=== PATIENT | female | born 1945 | race Two or more races ===

== ENCOUNTER 2019-09-03 10:58 | Inpatient (IN) | payer OTHER ==
[~2019-09-03] VITALS: Ht 167.6 cm; Wt 73.5 kg
[~2019-09-03 10:58] MED LIST: CANDESARTAN CILE8 MG PO; ELIQUIS5 MG PO; LEVOTHYROXINE25 MCG PO; REGLAN5 MG/5 ML PO; ZOFRAN8 MG PO
[2019-10-02] MEDS ORDERED: ATORVASTATIN CA40 MG PO (13:24)
[2019-10-06] MEDS ORDERED: HYOSCYAMINE0.125 M1 SL (12:51)
[2019-10-06] MEDS ORDERED: OXYC1TAB9 PO (12:52)
[2019-10-06] MEDS ORDERED: INTESTINEX680 M1 PO (12:52)
== END 2019-10-06 13:59 | disposition home or self-care (01) | DRG 330 ==
LOC: RECOVERY 09-04 10:28 → O/R 10-02 10:22 → SURH 10-02 10:22 → SURG 10-02 10:22 → RECOVERY 10-02 19:00 → SURG 10-02 19:59 → SURH 10-04 13:27
PROVIDERS: ADMIT Obstetrics & Gynecology Gynecologic Oncology; ATTEND Surgery
PROC: 0UBG8ZZ Excision of Vagina, Via Natural or Artificial Opening Endoscopic (ICD-10-PCS; 2019-10-02)
PROC: 07BB4ZX Excision of Mesenteric Lymphatic, Percutaneous Endoscopic Approach, Diagnostic (ICD-10-PCS; 2019-10-02)
PROC: 0D1N4Z4 Bypass Sigmoid Colon to Cutaneous, Percutaneous Endoscopic Approach (ICD-10-PCS; principal; 2019-10-02 19:00)
PROC: 0DBP4ZZ Excision of Rectum, Percutaneous Endoscopic Approach (ICD-10-PCS; 2019-10-02 19:00)
DX: C18.1 Malignant neoplasm of appendix (principal); C78.5 Secondary malignant neoplasm of large intestine and rectum; C79.82 Secondary malignant neoplasm of genital organs; R59.0 Localized enlarged lymph nodes; R14.0 Abdominal distension (gaseous); E03.8 Other specified hypothyroidism; D64.9 Anemia, unspecified; I11.9 Hypertensive heart disease without heart failure; Z03.818 Encounter for observation for suspected exposure to other biological agents ruled out

== ENCOUNTER 2021-03-15 05:40 | Day surgery (SDC) | payer OTHER ==
[~2021-03-15 05:40] MED LIST changes: +ATORVASTATIN CA40 MG PO; +HYOSCYAMINE0.125 M1 SL; +INTESTINEX680 M1 PO; +OXYC1TAB9 PO
== END 2021-03-15 10:15 | disposition home or self-care (01) ==
LOC: AMB-ENDOS 05:40
PROVIDERS: ATTEND Surgery
DX: K52.89 Other specified noninfective gastroenteritis and colitis (principal); Z20.822 Contact with and (suspected) exposure to COVID-19

== ENCOUNTER 2021-12-05 12:40 | Emergency (ER) | payer OTHER ==
[~2021-12-05] VITALS: Ht 162.6 cm; Wt 59.9 kg
[~2021-12-05 12:40] MED LIST changes: +DICLOFENAC SOD100 GM; +FERROUS GLUCON324 M2; +GABAPENTIN300 M2; +PROTONIX IV40 MG IV
== END 2021-12-05 21:14 | disposition home or self-care (01) ==
LOC: ER 12:40
DX: R10.9 Unspecified abdominal pain (principal); Z85.038 Personal history of other malignant neoplasm of large intestine; Z91.013 Allergy to seafood; Z91.041 Radiographic dye allergy status; E11.9 Type 2 diabetes mellitus without complications; Z85.3 Personal history of malignant neoplasm of breast

== ENCOUNTER 2022-09-15 18:20 | Inpatient (IN) | payer OTHER ==
[~2022-09-15] VITALS: Ht 162.6 cm; Wt 60.8 kg
[2022-09-15] MEDS ORDERED: PANTOPRAZOLE SO40 MG PO (18:27)
--- NOTE | 2022-09-15 18:27 | NUR ---
SE RECIBE FEMINA ALERTA Y ORIENTADA X3 EN AMBULANCIA. TRANSFERIDA DE [facility] DR [facility]WN EN BRAUN POR OBSTRUCCION ABDONMINAL ACEPTADA POR DR HA. PTE PREVIAMENTE CANALIZADA. SE OBSERVA NGT EN FOSA NASAL R+. SE MIDEN S/V Y SE UBICA.
--- NOTE | 2022-09-15 21:05 | NUR ---
PTE EVALUADA POR EL DR AKBAR QUIEN ORDE[place] EL [place]. MR Gato ARNOLD OIRENTA SOBRE EL TX ORDENADO, LO CUAL REFIERE ENTENDER Y REALIZA PRUEBAS DE LABORATORIO MAMADOU ORDEN MEDICA Y SIGUIENDO MEDIDAS ASEPTICAS.
[2022-09-19] MEDS ORDERED: ADULT ASPIRIN81 MG (15:28)
[2022-09-19] MEDS ORDERED: EYE DROPS15 ML (15:28)
[2022-09-19] MEDS ORDERED: URINARY PAIN RE95 MG (15:28)
[2022-09-19] MEDS ORDERED: GAS RELIEF125 MG (15:28)
[2022-09-19] MEDS ORDERED: NAPROXEN SODIU220 M1 (15:28)
[2022-09-20] MEDS ORDERED: ELIQUIS5 MG PO (10:55)
[2022-09-20] MEDS ORDERED: CANDESARTAN CILE8 MG PO (10:55)
[2022-09-20] MEDS ORDERED: KLOR-CON/EF 2525 MEQ PO (10:56)
[2022-09-20] MEDS ORDERED: LEVO-T137 MCG PO (10:56)
[2022-09-20] MEDS ORDERED: PROTONIX20 MG PO (10:57)
== END 2022-09-20 14:13 | disposition home or self-care (01) | DRG 389 ==
LOC: ER 18:20 → SURG 23:26
PROVIDERS: ADMIT Internal Medicine; ATTEND Internal Medicine
PROC: 0D9670Z Drainage of Stomach with Drainage Device, Via Natural or Artificial Opening (ICD-10-PCS; principal; 2022-09-16)
DX: K56.609 Unspecified intestinal obstruction, unspecified as to partial versus complete obstruction (principal); C20 Malignant neoplasm of rectum; D64.9 Anemia, unspecified; E87.6 Hypokalemia; E83.39 Other disorders of phosphorus metabolism; R19.7 Diarrhea, unspecified; E11.9 Type 2 diabetes mellitus without complications; I10 Essential (primary) hypertension; E03.9 Hypothyroidism, unspecified; Z93.3 Colostomy status

== ENCOUNTER 2022-11-03 04:29 | Inpatient (IN) | payer OTHER ==
[~2022-11-03] VITALS: Ht 165.1 cm; Wt 54.4 kg
[~2022-11-03 04:29] MED LIST changes: +ADULT ASPIRIN81 MG; +EYE DROPS15 ML; +GAS RELIEF125 MG; +KLOR-CON/EF 2525 MEQ PO; +LEVO-T137 MCG PO; +NAPROXEN SODIU220 M1; +PANTOPRAZOLE SO40 MG PO; +PROTONIX20 MG PO; +URINARY PAIN RE95 MG
--- NOTE | 2022-11-03 04:43 | NUR ---
SE RECIBE FEMINA ALERTA Y ORIENTADA X3 QUIEN REFIERE ESTRENIMIENTO DE HACE 2 LOUIS Y DOLOR DE ABDOMEN. PTE CON HX DE CANCER DE COLON Y COLOSTOMIA LADO IZQ. SE MIDEN S/V Y SE UBICA.
--- NOTE | 2022-11-03 05:33 | NUR ---
PACIENTE EVALUADA POR DR. VINSON QUIEN ORDENA TRATAMIENTO, RN NUNO EDUCA ACERCA DEL MISMO Y REFIERE ENTENDER. SE CANALIZA Y COLECTAN MUESTRAS DE LABORATORIO MEDIANTE MEDIDAS SEPTICAS. SE ADMINISTRAN MEDICAMENTOS MAMADOU ORDEN MEDICA. SE NOTIFICA CT A PERSONAL DE TURNO
--- NOTE | 2022-11-03 16:03 | NUR ---
SE RECIBE PACIENTE DEL TURNO ANTERIOR LA MISMA SE ENCUENTRA ALERTA Y ORIENTADA X3, SE LE ORIENTA A PACIENTE SOBRE CONTINUIDAD DE TRATAMIENTO Y VERBALIZA ENTENDER. SE OBSERVA PACIENTE CANALIZADA CON VENOPUNCION PATENTE, VALERIE DE EDEMA Y ERITEMA RECIBIENDO 0.9%NSS BAJANDO A 100ML/HR. PENDIENTE CONSULTA CON DR LUGO.
[2022-11-06] MEDS ORDERED: PANTOPRAZOLE SO40 MG (15:38)
[2022-11-09] MEDS ORDERED: PEPCID AC20 MG PO (10:08)
[2022-11-09] MEDS ORDERED: INTESTINEX680 M1 PO (10:08)
[2022-11-09] MEDS ORDERED: LEVSIN/SL0.125 MG SL (10:09)
== END 2022-11-09 13:43 | disposition home or self-care (01) | DRG 389 ==
LOC: ER 04:29 → SURG 17:11
PROVIDERS: ADMIT Surgery; ATTEND Surgery
PROC: BW21YZZ Computerized Tomography (CT Scan) of Abdomen and Pelvis using Other Contrast (ICD-10-PCS; principal; 2022-11-03)
PROC: 02HV33Z Insertion of Infusion Device into Superior Vena Cava, Percutaneous Approach (ICD-10-PCS; 2022-11-05)
DX: K56.699 Other intestinal obstruction unspecified as to partial versus complete obstruction (principal); C20 Malignant neoplasm of rectum; K43.5 Parastomal hernia without obstruction or gangrene; Z79.4 Long term (current) use of insulin; E03.9 Hypothyroidism, unspecified; Z20.822 Contact with and (suspected) exposure to COVID-19; I12.9 Hypertensive chronic kidney disease with stage 1 through stage 4 chronic kidney disease, or unspecified chronic kidney disease; E11.22 Type 2 diabetes mellitus with diabetic chronic kidney disease; N18.30 Chronic kidney disease, stage 3 unspecified

== ENCOUNTER 2022-11-18 21:34 | Inpatient (IN) | payer OTHER ==
[~2022-11-18] VITALS: Ht 162.6 cm; Wt 45.4 kg
[~2022-11-18 21:34] MED LIST changes: +LEVSIN/SL0.125 MG SL; +PANTOPRAZOLE SO40 MG; +PEPCID AC20 MG PO
[2022-11-20] MEDS ORDERED: ALLERGY RELIEF25 M1 (09:10)
[2022-11-20] MEDS ORDERED: ADVIL MIGRAINE200 MG (09:10)
[2022-11-20] MEDS ORDERED: PANADOL EXTRA500 MG (09:10)
[2022-11-20] MEDS ORDERED: ELIQUIS5 MG (09:11)
[2022-11-20] MEDS ORDERED: ADULT ASPIRIN81 MG (09:11)
[2022-12-05] MEDS ORDERED: PEPCID AC20 MG PO (14:26)
[2022-12-05] MEDS ORDERED: INTESTINEX680 M1 PO (14:26)
[2022-12-05] MEDS ORDERED: DICY20TA PO (14:27)
== END 2022-12-05 17:16 | disposition home or self-care (01) | DRG 330 ==
LOC: ER 21:34 → SURH 11-19 11:28 → O/R 11-22 11:58 → SURH 11-22 12:00 → SEC-K 11-22 12:26 → SURH 11-22 13:44 → O/R 11-22 15:02 → SURH 11-22 15:03
PROVIDERS: ADMIT Surgery; ATTEND Surgery
PROC: 02HV33Z Insertion of Infusion Device into Superior Vena Cava, Percutaneous Approach (ICD-10-PCS; 2022-11-19)
PROC: B54PZZZ Ultrasonography of Bilateral Upper Extremity Veins (ICD-10-PCS; 2022-11-21)
PROC: BW21YZZ Computerized Tomography (CT Scan) of Abdomen and Pelvis using Other Contrast (ICD-10-PCS; 2022-11-25)
PROC: 0DTB0ZZ Resection of Ileum, Open Approach (ICD-10-PCS; 2022-11-30)
PROC: 0DN80ZZ Release Small Intestine, Open Approach (ICD-10-PCS; 2022-11-30)
PROC: 0WQF0ZZ Repair Abdominal Wall, Open Approach (ICD-10-PCS; 2022-11-30)
PROC: 0DTK0ZZ Resection of Ascending Colon, Open Approach (ICD-10-PCS; principal; 2022-11-30 10:30)
DX: K56.50 Intestinal adhesions [bands], unspecified as to partial versus complete obstruction (principal); C20 Malignant neoplasm of rectum; K43.5 Parastomal hernia without obstruction or gangrene; E87.6 Hypokalemia; D64.9 Anemia, unspecified; I80.8 Phlebitis and thrombophlebitis of other sites; I12.9 Hypertensive chronic kidney disease with stage 1 through stage 4 chronic kidney disease, or unspecified chronic kidney disease; E11.22 Type 2 diabetes mellitus with diabetic chronic kidney disease; N18.30 Chronic kidney disease, stage 3 unspecified; Z79.4 Long term (current) use of insulin